=== PATIENT | male | born 1990 | race African-American/Black ===

== ENCOUNTER 2022-06-29 18:45 | Emergency (ER) | payer SELFPAY ==
[~2022-06-29] VITALS: Ht 185.4 cm; Wt 81.6 kg
[2022-06-29 18:51] VITALS: BP 120/50
--- NOTE | 2022-06-29 18:51 | NUR ---
PT OFFLOADED TO BED 11 ALS RUN
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
--- NOTE | 2022-06-29 19:45 | NUR ---
pt brother is at the bedside.
[2022-06-29] MEDS ORDERED: levETIRAcetam 1,000 MG in NACL 0.9% 100 ML IV ONE (19:50)
[2022-06-29] MEDS ORDERED: NACL 0.9% 1,000 ML IV SCH (19:50)
--- NOTE | 2022-06-29 20:07 | NUR ---
pt is having a seizure. notified thr . ativan is ordered.
[2022-06-29] MEDS ORDERED: LORazepam 2 MG/ML VIAL IVP ONE ×2 (20:10→20:15)
[2022-06-29] MEDS ORDERED: LORazepam 2 MG/ML VIAL ONE (20:10)
[2022-06-29] MEDS ORDERED: levETIRAcetam 100 MG/ML VIAL IV ONE (20:14)
[2022-06-29 20:16] LABS: BASOPHILS % (AUTO) 0.9 % (0.0-2.0); EOSINOPHILS # (AUTO) 0.1 K/uL (0-0.4); EOSINOPHILS % (AUTO) 1.3 % (0.0-4.0); HEMATOCRIT 41.3 % (36-52); HEMOGLOBIN 13.9 g/dL (12.0-18.0); LYMPHOCYTES # (AUTO) 0.9 K/uL (2.0-11.5); MEAN CORPUSCULAR HEMOGLOBIN 31 pg (27-31); MEAN CORPUSCULAR HGB CONC 34 g/dL (33-37); MEAN CORPUSCULAR VOLUME 90.9 fL (80-94); MONOCYTES # (AUTO) 0.3 K/uL (0.8-1.0); MONOCYTES % (AUTO) 6.7 % (1.7-9.3); NEUTROPHILS # (AUTO) 3.8 K/uL (1.8-7.7); NEUTROPHILS % (AUTO) 73.1 % (42.2-75.2); PLATELET COUNT (AUTO) 195 K/uL (140-450); RED BLOOD CELL COUNT(AUTO) 4.55 MIL/uL (4.20-6.10); WHITE BLOOD COUNT (AUTO) 5.2 K/uL (4.8-10.8)
[2022-06-29 20:28] LABS: ALBUMIN 3.8 g/dL (3.4-5.0); CARBON DIOXIDE 28.1 mmol/L (21-32); CREATININE 1.2 mg/dL (0.6-1.3); POTASSIUM 4.1 mmol/L (3.5-5.1); TOTAL BILIRUBIN 1.2 mg/dL (0.0-1.0)
--- NOTE | 2022-06-29 23:00 | NUR ---
pt is resting and no respitarory distress noted. brother on the bedside
[2022-06-29 23:34] LABS: BARBITURATE, URINE NEGATIVE ng/ml (NEG <=200); BENZODIAZEPINE, URINE NEGATIVE ng/mL (NEG <=200); CANNABINOID, URINE POSITIVE ng/mL (NEG <=50); COCAINE, URINE NEGATIVE ng/mL (NEG <=300); OPIATE, URINE NEGATIVE ng/mL (NEG <=2000); PHENCYCLIDINE SCREEN,URINE NEGATIVE ng/mL (NEG <=25)
[2022-06-30 00:06] VITALS: BP 120/50
--- NOTE | 2022-06-30 00:09 | NUR ---
Patient discharged with v/s stable. Written and verbal after care instructions given and explained. Patient verbalized understanding. Ambulatory with steady gait. All questions addressed prior to discharge. Advised to follow up with PMD. Pt left with his belongings and his cousin.
== END 2022-06-30 00:09 | disposition home or self-care (01) ==
LOC: MED 18:45
DX: G40.89 Other seizures (principal); F12.90 Cannabis use, unspecified, uncomplicated; I51.7 Cardiomegaly; Z79.899 Other long term (current) drug therapy
CPT/HCPCS: 36415; 71045; 80053; 80305; 82553; 85025; 96365; 96368; 99285; J1953; J2060; J7030